=== PATIENT | female | born 1985 | race African-American/Black ===

== ENCOUNTER → 2021-12-22 | Day surgery (SDC) | payer MEDICARE ==
[~2021-12-22] MED LIST: CILGAVIMAB IM SCH; TIXAGEVIMAB IM SCH
[2021-12-22 13:57] VITALS: BP 108/69; TEMP 98.3
== END | disposition home or self-care (01) ==
LOC: ONC/OP 12:57
PROVIDERS: ATTEND Student in an Organized Health Care Education/Training Program
DX: Z29.8 Encounter for other specified prophylactic measures (principal); Z88.3 Allergy status to other anti-infective agents; Z23 Encounter for immunization
CPT/HCPCS: M0220; Q0220

== ENCOUNTER 2022-03-09 14:15 | Outpatient (CLI) | payer MEDICARE, MEDICAID | END 2022-03-09 14:16 | disposition home or self-care (01) | LOC: BICMAMMO 14:15 | PROVIDERS: ATTEND Student in an Organized Health Care Education/Training Program | DX: D24.1 Benign neoplasm of right breast (principal) | CPT/HCPCS: 76642; 77066; G0279 ==

== ENCOUNTER 2022-05-11 11:51 | Emergency (ER) | payer MEDICARE, MEDICAID ==
[~2022-05-11 11:51] MED LIST changes: -CILGAVIMAB IM SCH; +Iopamidol-370 76% 500 ML 1 ML ONE; -TIXAGEVIMAB IM SCH
[2022-05-11 12:25] LABS: #Lymphocytes 0.9 thou/uL (1.20-3.40); #Monocytes 0.3 thou/uL (0.11-0.59); #Neutrophils 1.2 thou/uL (1.40-6.50); %Basophils 0.3 % (0.0-1.0); %Eosinophils 0.7 % (0.0-10.0); Hemoglobin 14.7 g/dL (12.0-16.0); Mean Corpuscular HGB CONC 32.1 g/dL (32.0-36.0); Mean Corpuscular Hemoglobin 28.2 pg (27.0-31.0); Mean Corpuscular Volume 87.8 fl (78.0-98.0); Mean Platelet Volume 11.4 fL (7.4-10.4); Platelet Count 129 10x3/uL (130-400); RBC Distribution Width 12.2 % (11.5-14.5); Red Blood Cell (RBC) Count 5.19 mill/uL (4.20-5.40); White Blood Cell (WBC) Count 2.4 10x3/uL (4.8-10.8)
[2022-05-11 12:44] LABS: ALT (SGPT) 31 U/L (8-55); AST (SGOT) 30 U/L (5-34); Albumin 4.4 g/dL (3.5-5.0); Alkaline Phosphatase 46 U/L (40-110); Anion Gap 11 mmol/L (10-20); BUN (Urea Nitrogen) 14 mg/dL (7.0-18.7); Bilirubin, Total 0.5 mg/dL (0.2-1.2); Calc. Creatinine Clearance 0 mL/min (70-130); Calcium 9.6 mg/dL (7.8-10.44); Carbon Dioxide 20 mmol/L (22-29); Chloride 112 mmol/L (98-107); Estimated GFR 57; Globulin 2.4 g/dL (2.4-3.5); Glucose 96 mg/dL (70-105); Lipase 6 U/L (8-78); Potassium 3.9 mmol/L (3.5-5.1); Protein, Total 6.8 g/dL (6.0-8.3); Sodium 139 mmol/L (136-145)
[2022-05-11 12:50] LABS: BHCG - Serum Negative (NEGATIVE); Pregs Control Background? CLEAR/WHITE (CLR/WHITE); Pregs Control Bar Appear? YES (CONTROL BAR)
[2022-05-11] MEDS ORDERED: Acetaminophen 500 MG TAB ONE (13:59)
== END 2022-05-11 14:38 | disposition home or self-care (01) ==
LOC: ERS 11:51
DX: R07.9 Chest pain, unspecified (principal); I12.9 Hypertensive chronic kidney disease with stage 1 through stage 4 chronic kidney disease, or unspecified chronic kidney disease; N18.9 Chronic kidney disease, unspecified; G43.909 Migraine, unspecified, not intractable, without status migrainosus; Z79.899 Other long term (current) drug therapy
CPT/HCPCS: 36415; 71275; 80053; 83690; 83880; 84484; 84703; 85025; 93005; Q9967

== ENCOUNTER 2022-06-14 09:47 | Day surgery (SDC) | payer MEDICARE, MEDICAID ==
[2022-06-13 10:21] VITALS: BMI 22.9
[2022-06-14] MEDS ORDERED: Midazolam HCl 2 mg/2 ml Vial ONE (09:49)
[2022-06-14] MEDS ORDERED: Fentanyl 250 MCG/5 ML VIAL ONE (09:49)
[2022-06-14] MEDS ORDERED: Bupivacaine/Epinephrine 0.25% 30 ML VIAL ONE (10:18)
[2022-06-14] MEDS ORDERED: Lidocaine 1% (PF) 30 ML VIAL ONE (10:18)
[2022-06-14] MEDS ORDERED: Acetaminophen 500 MG TAB ONE (10:19)
[2022-06-14] MEDS ORDERED: Dexamethasone 20 MG/5 ML VIAL ONE (10:43)
[2022-06-14] MEDS ORDERED: PROPOFOL 200 MG/20 ML VIAL ONE (10:43)
[2022-06-14] MEDS ORDERED: Phenylephrine 10 MG/ML VIAL ONE (10:43)
[2022-06-14] MEDS ORDERED: Ondansetron PF 4 MG/2 ML Vial ONE (10:43)
[2022-06-14] MEDS ORDERED: Sodium Chloride 0.9% 100 ML ONE (10:52)
[2022-06-14] MEDS ORDERED: CEFAZOLIN 2 GM VIAL ONE (10:52)
[2022-06-14] MEDS ORDERED: HYDROcodone/Acetaminophen 5/325 mg Tablet ONE (12:39)
== END 2022-06-14 13:20 | disposition home or self-care (01) ==
LOC: SDC 09:47
PROVIDERS: ATTEND Specialist
PROC: 0HBT0ZZ Excision of Right Breast, Open Approach (ICD-10-PCS; principal; 2022-06-14)
DX: D24.1 Benign neoplasm of right breast (principal); I10 Essential (primary) hypertension; M35.9 Systemic involvement of connective tissue, unspecified; Z79.620 Long term (current) use of immunosuppressive biologic; Z79.83 Long term (current) use of bisphosphonates; Z79.899 Other long term (current) drug therapy; Z88.8 Allergy status to other drugs, medicaments and biological substances
CPT/HCPCS: 88305; C1713; J1100; J2001; J2250; J2370; J2405; J2704; J3010; J3490

== ENCOUNTER 2023-07-22 15:11 | Emergency (ER) | payer MEDICARE, MEDICAID | END 2023-07-22 17:18 | disposition home or self-care (01) | LOC: ERS 15:11 | DX: N89.8 Other specified noninflammatory disorders of vagina (principal); I12.9 Hypertensive chronic kidney disease with stage 1 through stage 4 chronic kidney disease, or unspecified chronic kidney disease; N18.9 Chronic kidney disease, unspecified; Z86.19 Personal history of other infectious and parasitic diseases; Z79.899 Other long term (current) drug therapy | CPT/HCPCS: 99283 ==